=== PATIENT | female | born 1975 | race Hispanic/Latino ===

== ENCOUNTER 2021-05-11 01:11 | Emergency (ER) | payer OTHER ==
[~2021-05-11] VITALS: Ht 162.6 cm; Wt 79.4 kg
[2021-05-11] MEDS ORDERED: KETOROLAC TROMETHAMINE 60 MG/2 ML VIAL IM ONE (01:15)
[2021-05-11] MEDS ORDERED: TRAMADOL HCL 50 MG TAB PO STA (01:40)
[2021-05-11] MEDS ORDERED: ULTRAM50 MG PO (02:01)
[2021-05-11 02:19] VITALS: BP 132/81
== END 2021-05-11 02:22 | disposition home or self-care (01) ==
LOC: ER 01:17
DX: M25.532 Pain in left wrist (principal); S80.812A Abrasion, left lower leg, initial encounter; V29.88XA Motorcycle rider (driver) (passenger) injured in other specified transport accidents, initial encounter; Y92.488 Other paved roadways as the place of occurrence of the external cause
CPT/HCPCS: 29125; 73090; 73590; 99283; J1885

== ENCOUNTER 2023-09-12 14:25 | Emergency (ER) | payer OTHER ==
[~2023-09-12] VITALS: Ht 162.6 cm; Wt 59.0 kg
[~2023-09-12 14:25] MED LIST: ULTRAM50 MG PO
[2023-09-12] MEDS ORDERED: ONDANSETRON HCL INJ 2MG/ML 2ML 2 MG/ML VIAL ONE (14:37)
[2023-09-12] MEDS: METHYLPREDNISOLONE SOD SUCC 125 MG/2ML VIAL IV STA (14:52)
[2023-09-12] MEDS: FAMOTIDINE 20 MG/2 ML VIAL IV STA (14:53)
[2023-09-12] MEDS: DIPHENHYDRAMINE HCL INJ 50 MG/ML VIAL IV ONE (14:53)
[2023-09-12] MEDS: ONDANSETRON HCL INJ 2MG/ML 2ML 2 MG/ML VIAL IV STA (14:53)
[2023-09-12 14:54] VITALS: BP 119/73
[2023-09-12] MEDS: EPINEPHRINE HCL 1:1000 1ML 1 MG/ML AMP INJ ONE ×2 (14:54)
[2023-09-12] MEDS ORDERED: DEXAMETHASONE SOD PHOS 10 MG/1 ML VIAL ONE (14:54)
[2023-09-12 16:48] VITALS: O2SAT 100
[2023-09-12] MEDS: SODIUM CHLORIDE 0.9% 1000ML 1,000 ML IV STA (16:51)
[2023-09-12 17:47] LABS: INR 1.11; PROTHROMBIN TIME 14.5 seconds (11.9-14.5)
[2023-09-12 17:48] LABS: PARTIAL THROMBOPLASTIN TIME 28.5 seconds (23.8-35.5)
[2023-09-12 17:52] LABS: BASOPHILS % 0.4 % (0.0-1.0); EOSINOPHILS % 0.4 % (0.0-6.0); HEMATOCRIT 25.5 % (34.2-44.1); HEMOGLOBIN 6.5 g/dL (12.0-16.0); LYMPHOCYTES # (AUTO) 2.3 (1.0-3.2); LYMPHOCYTES % 47.2 % (18.0-39.1); MEAN CORPUSCULAR HEMOGLOBIN 17.3 pg (28-32); MEAN CORPUSCULAR HGB CONC 25.5 g/dL (31-35); MONOCYTES # (AUTO) 0.3 (0.2-0.8); MONOCYTES % 6.2 % (4.4-11.3); NEUTROPHILS # (AUTO) 2.2 (2.1-6.9); NEUTROPHILS % 45.6 % (38.7-80.0); PLATELET COUNT 472 x10e3/uL (140-360); RED BLOOD COUNT 3.75 x10e6/uL (3.6-5.1); RED CELL DISTRIBUTION WIDTH 19.3 % (11.7-14.4); WHITE BLOOD COUNT 4.87 x10e3/uL (4.8-10.8)
[2023-09-12 17:55] LABS: ALANINE AMINOTRANSFERASE 15 IU/L (0-55); ALBUMIN 3.5 g/dL (3.5-5.0); ALBUMIN/GLOBULIN RATIO 1.2 (0.8-2.0); ALKALINE PHOSPHATASE 90 IU/L (40-150); ANION GAP 11.4 mmol/L (8-16); BILIRUBIN,TOTAL 0.7 mg/dL (0.2-1.2); BLOOD UREA NITROGEN 15 mg/dL (7-26); BUN/CREATININE RATIO 23 (6-25); CARBON DIOXIDE 20 mmol/L (22-29); CHLORIDE 110 mmol/L (98-107); CREATININE, SERUM 0.65 mg/dL (0.57-1.11); EST GLOMERULAR FILTRATION RATE 110 ML/MIN (>=60); GLUCOSE 135 mg/dL (74-118); SODIUM 138 mmol/L (136-145); TOTAL PROTEIN 6.4 g/dL (6.5-8.1)
[2023-09-12 17:57] LABS: POTASSIUM 3.4 mmol/L (3.5-5.1)
[2023-09-12] MEDS ORDERED: EPINEPHRIN0.3 MG/0.3 IM (18:21)
[2023-09-12] MEDS ORDERED: MEDROL4 M2 PO (18:21)
== END 2023-09-12 18:15 | disposition home or self-care (01) ==
LOC: ER 14:54
DX: T78.3XXA Angioneurotic edema, initial encounter (principal); T78.1XXA Other adverse food reactions, not elsewhere classified, initial encounter; R73.9 Hyperglycemia, unspecified; Z11.52 Encounter for screening for COVID-19
CPT/HCPCS: 36415; 80053; 84702; 85025; 85610; 85730; 99284; J1100; J2405; U0002